=== PATIENT | male | born 1965 | race Caucasian/White ===

== ENCOUNTER 2016-12-20 06:46 | Day surgery (SDC) | payer OTHER ==
--- NOTE | 2016-12-20 06:42 | History and Physical - [facility] ---
CHIEF COMPLAINT/HISTORY OF CHIEF COMPLAINT: This patient presents with a history of intractable lumbar radiculitis. An implanted spinal opioid infusion system has been placed over a number of years. Recently the system ran dry and it has at this point been nonfunctional for greater than 7-10 days. For that reason he is here for replacement of pump with refill and appropriate diagnostics. His infusion system was infusing Hydromorphone at 4.5 mg per day. The catheter tip was identified at L1-L2. PAST MEDICAL HISTORY: Asthmatic bronchitis, hypertension and closed head injury. PAST SURGICAL HISTORY: MEDICATIONS ON ADMISSION: List to be provided. ALLERGIES: ULTRAM. FAMILY/PSYCHOSOCIAL HISTORY: SYSTEMS REVIEW: The patient is appropriate in no acute distress. The remainder of the systems review is positive for sleep disturbance, blood pressure problems, gastrointestinal disease, depression, and anxiety disorder. PHYSICAL EXAMINATION: Height is 6'2", weight is 250. Vital signs not available. HEENT: Within normal limits. LUNGS: Clear. HEART: Regular rate and rhythm. ABDOMEN: Nontender. MUSCULOSKELETAL: Examination of the musculoskeletal system shows the pump in the left posterior gluteal margin. The incisional site is intact. Midline catheter placement site is intact. Sensory sargent are intact. NEUROLOGIC: Cranial nerves are intact. IMPRESSION: 1. INTRACTABLE LUMBAR RADICULITIS, ICD10 CODE M54.16 AND M54.17. 2. SPINAL OPIOID INFUSION SYSTEM PROGRAMMABLE PUMP WITH HYDROMORPHONE, NONFUNCTIONAL. PLAN: The patient is here for replacement of pump and reinitiation of the infusion therapy. He has been managed by oral medications for withdrawal and will be kept overnight for observation and discharged in the morning. All the potential risks, side effects, and complications have been carefully reviewed and discussed. ANIL CALVILLO D.O. Date & Time JOB NUMBER: [id number] MTDD
[~2016-12-20 06:46] MED LIST: ACETAMINOPHEN 1000MG/100 ML PREMIX IV ONE; CEFAZOLIN 2 Gram 50 ML IVPB ONE; FAMOTIDINE 20MG TABLET PO ONE; HYDROMORPHONE HCL IV ONE; HYDROMORPHONE HCL/PF 0.002 MG in 0.9 % SODIUM CHLORIDE 10ML VIA 0.998 ML IVP ONE; MECLIZINE 25 MG TABLET PO ONE; METOCLOPRAMIDE 10 MG TABLET PO ONE; SODIUM CHLORIDE 0.9% IV ONE
[2016-12-20 07:18] LABS: BASO % 0.5 % (0-6); EOS % 3.8 % (0-6); HEMATOCRIT 40.1 % (42.0-52.0); HEMOGLOBIN 13.3 gm/dl (14.0-18.0); LYMPH % 36.7 % (16-45); MEAN CELL VOLUME 86.4 fl (81-97); MEAN CORPUSCULAR HGB CONC 33.2 g/dl (32-36); MEAN PLATELET VOLUME 10.8 fl (7.4-10.4); PLATELET COUNT 200 K/uL (130-400); RED BLOOD COUNT 4.64 M/uL (4.40-5.70); RED CELL DISTRIBUTION WIDTH 14.9 % (11.5-14.5); WHITE BLOOD COUNT W/O DIFF 7.6 K/uL (4.2-12.2)
[2016-12-20 07:19] LABS: MEAN CORPUSCULAR HEMOGLOBIN 28.6 pg (27-33)
[2016-12-20 07:28] LABS: ANION GAP 10.6 (7-16); CARBON DIOXIDE 23.4 mmol/L (22-30); CREATININE 1.4 mg/dL (0.66-1.25); INR 0.98; PARTIAL THROMBOPLASTIN TIME 29.2 SECONDS (24.5-39.1); PROTHROMBIN TIME (PATIENT) 11.1 SECONDS (9.5-12.1)
[2016-12-20] MEDS ORDERED: HYDROMORPHONE HCL 2 MG/ML VIAL IV ONE (14:00)
[2016-12-20] MEDS ORDERED: MIDAZOLAM HCL 2MG/2ML VIAL IV ONE (14:00)
[2016-12-20] MEDS ORDERED: PROPOFOL 10 MG/ML VIAL IV ONE (14:00)
[2016-12-20] MEDS ORDERED: BUPIVACAINE 0.5% W/EPI MPF 30 ML VIAL IVP ONE (17:01)
[2016-12-20] MEDS ORDERED: CEFAZOLIN 1G VIAL IM ONE (17:01)
[2016-12-20] MEDS ORDERED: LIDOCAINE 1% W/EPI 1:200,000 MPF 30ML SQ ONE (17:01)
--- NOTE | 2016-12-22 09:00 | Operative Note ---
DATE OF SURGERY: 12/20/2016. PREOPERATIVE DIAGNOSES: 1. Intractable lumbar radiculitis, ICD-10 Code M54.16 and M54.17. 2. Battery depletion and failure, spinal infusion system, hydromorphone. SURGERY: 1. Incision, subcutaneous dissection, and removal and replacement of a programmable pump 40 mL [employer].2. Resection, spinal catheter. 3. Interface resected catheter to pump, prefilled hydromorphone 0.5 mg/mL. 4. Placement of pump with catheter attachment into pouch, securing to posterior fascia with nonabsorbable suture. 5. Placement of 24 gauge Interiano needle into access port, aspiration and clearing catheter of opioid and CSF mixture, 1 mL. 6. Diagnostic myelography with radiologic supervision and interpretation through access port. 7. Placement of pump into pouch, securing to posterior fascia using nonabsorbable suture, pump eyelets. Closure of incision with Vicryl for fascia, running subcuticular Vicryl for skin, Dermabond closure. 8. Programming of pump to deliver by continuous infusion hydromorphone at 0.05 mg per day. Surgeon: Ok Stein DO. Anesthesia: Local sedation. Anesthesia Provider: Steve Campbell CRNA. Indications: This patient presents with a history of intractable lumbar radiculitis. Approximately 7-10 days ago, the pump fluid depleted and the battery went into a stall. He is here for replacement of pump and reinitiation of infusion therapy. Previous dose hydromorphone 4.5 mg per day. PROCEDURE: Intravenous line, vital sign monitoring, intravenous sedation, prep, drape, sterile technique. Patient positioned prone. Sterile prep at the left posterior gluteal margin using imagery of guidance and local infiltration. The previous incision was infiltrated. Incision made and subcutaneous dissection was conducted to the pump. The pump was then exteriorized. The pump was from the indwelling catheter and replaced onto the field with a new 40 mL programmable, prefilled hydromorphone 0.5 mg/mL. The indwelling catheter within the pouch had a damaged interface. Catheter resection performed, replacing the distal portion of the catheter. The revised catheter was then interfaced with a new pump. A 24 gauge Interiano needle was inserted into the access port and 1 mL of catheter contents was aspirated, clearing the catheter of opioid and CSF. The pump was then placed into the pouch and secured to the posterior fascia using nonabsorbable suture at 2 points, pump eyelets. With the pump secured into the pouch and through the access port, contrast was injected. The resulting myelogram with radiologic supervision and interpretation showed the catheter tip at L1-2 with smooth linear flow of contrast noted. Catheter could be seen, all connections appropriate. There were no kinks or bends, no leaks. The incision was then closed with Vicryl for fascia, running subcuticular Vicryl for the skin, Dermabond closure. Pump was then programmed to deliver by continuous infusion hydromorphone at 0.05 mg per day. He was transported to the recovery room stable, showing no side effects of the procedure or the sedation. He will be monitored until stable and discharged home. DISCHARGE INSTRUCTIONS: 1. The sites will remain clean and dry, with no showering or bathing in any way that would disrupt dressings. If it happens, contact the clinic.2. Standard medications resumed, including Levaquin the antibiotic 500 mg once a day for 14 days. 3. Spinal opioid side effects, including respiratory depression, nausea, vomiting, constipation, urinary retention, lightheadedness, or rash have all been discussed and reviewed. 4. Other instructions were provided, with numbers to contact for problems given. He will be seen in the office in 3-5 days. He should keep his activity low until his incisions are checked. Ok Stein DO CC: Dr. Mary SCHOFIELD
== END 2016-12-20 09:45 | disposition home or self-care (01) ==
LOC: SUR 06:46
PROVIDERS: ATTEND Pain Medicine Interventional Pain Medicine
DX: T85.695A Other mechanical complication of other nervous system device, implant or graft, initial encounter (principal); I10 Essential (primary) hypertension; E78.00 Pure hypercholesterolemia, unspecified; E11.9 Type 2 diabetes mellitus without complications; Z79.84 Long term (current) use of oral hypoglycemic drugs; Z79.01 Long term (current) use of anticoagulants
CPT/HCPCS: 62367; 85025; 85730; 85610; 80048; 85002; 62362; 00300; Q9967; J1170 ×2; J0690

== ENCOUNTER 2017-06-20 14:20 | Day surgery (SDC) | payer OTHER ==
--- NOTE | 2017-06-20 07:09 | History and Physical Report ---
DATE: 06/19/2017. CHIEF COMPLAINT AND HISTORY OF CHIEF COMPLAINT: This patient presents with a history of posttraumatic cervical radiculitis. Due to the failure of therapy, an office-based spinal cord stimulator trial was conducted on May 31, 2017, with 75 to 85 percent pain control. Due to the failure of all therapy and the success of the trial, he presents today for implantation of a permanent system. PAST MEDICAL HISTORY: Asthmatic bronchitis, hypertension, closed head injury. PAST SURGICAL HISTORY: Craniotomy. MEDICATIONS ON ADMISSION: To be provided. ALLERGIES: Ultram. PHYSICAL EXAMINATION: General: Height and weight are not known. Vital Signs: Unavailable. HEENT: Within normal limits. Lungs: Clear. Heart: Regular rate and rhythm. Abdomen: Nontender. Musculoskeletal: Examination of the musculoskeletal system shows diffuse tenderness throughout the cervical spine. There is tenderness throughout the upper extremity muscle groups across the trapezius, suprascapular, and deltoid. Hand grasp and supply planner strength are intact. There is no obvious neurologic deficit. Motor and reflexes are intact. Neurologic: Cranial nerves are intact. IMPRESSION: INTRACTABLE CERVICAL RADICULITIS, ICD-10 CODE M54.13. PLAN: The patient is here for implantation of a permanent cervical spinal cord stimulator based upon a successful trial and the failure of all other therapies. The potential risks, side effects, and complications have all been carefully reviewed and discussed. These include dural puncture, spinal headache , nerve root injury, and spinal cord injury. We will consider the procedure outpatient, but an overnight stay will be evaluated. JOB NUMBER: [id number] cc: Messi Vitale
[~2017-06-20 14:20] MED LIST changes: +ACETAMINOPHEN 1,000 MG/100 ML BTL IV ONE; -ACETAMINOPHEN 1000MG/100 ML PREMIX IV ONE; +CEFAZOLIN 2 Gram 2 GM/50 ML BAG IVPB ONE; -CEFAZOLIN 2 Gram 50 ML IVPB ONE; -HYDROMORPHONE HCL IV ONE; -HYDROMORPHONE HCL/PF 0.002 MG in 0.9 % SODIUM CHLORIDE 10ML VIA 0.998 ML IVP ONE; -SODIUM CHLORIDE 0.9% IV ONE
[2017-06-20] MEDS ORDERED: LIDOCAINE 2% MDV (20MG/ML) 20ML VIAL IV ONE (14:21)
[2017-06-20] MEDS ORDERED: LIDOCAINE 1% W/EPI 1:200,000 MPF 30ML SQ ONE (14:21)
[2017-06-20] MEDS ORDERED: FENTANYL PF 100MCG/2ML VIAL IV ONE (14:21)
[2017-06-20] MEDS ORDERED: MIDAZOLAM HCL 2MG/2ML VIAL IV ONE (14:21)
[2017-06-20] MEDS ORDERED: CEFAZOLIN 1G VIAL IM ONE (14:21)
[2017-06-20] MEDS ORDERED: BUPIVACAINE 0.75% W/EPI MPF 30ML VIAL IVP ONE (14:21)
[2017-06-20] MEDS ORDERED: PROPOFOL 10 MG/ML VIAL IV ONE (14:21)
[2017-06-20] MEDS ORDERED: FLUMAZENIL 1MG/10ML VIAL IV ONE (14:21)
[2017-06-20 14:41] LABS: BLEEDING TIME 5.5 MINUTES (1.5-7.0)
[2017-06-20 14:56] LABS: INR 1.04; PARTIAL THROMBOPLASTIN TIME 30.8 SECONDS (24.5-39.1); PROTHROMBIN TIME (PATIENT) 11.2 SECONDS (9.5-12.1)
[2017-06-20] MEDS ORDERED: METOCLOPRAMIDE 10 MG TABLET PO PRN (16:19)
[2017-06-20] MEDS ORDERED: HYDROMORPHONE HCL 2 MG/ML VIAL IM PRN (16:19)
[2017-06-20] MEDS ORDERED: HYDROMORPHONE HCL 1 MG/ML CPJ IM PRN (16:19)
[2017-06-20] MEDS ORDERED: ACETAMINOPHEN 325 MG TAB PO PRN ×2 (16:19)
[2017-06-20] MEDS ORDERED: TEMAZEPAM 15 MG CAPSULE PO PRN ×2 (16:19)
[2017-06-20] MEDS ORDERED: HYDROCODONE/APAP 7.5/325MG TABLET PO PRN ×2 (16:19)
[2017-06-20] MEDS ORDERED: DIPHENHYDRAMINE HCL 25 MG CAPSULE PO PRN ×2 (16:19)
[2017-06-20] MEDS ORDERED: OXYCODONE/APAP 10MG-325MG TABLET PO PRN (16:19)
[2017-06-20] MEDS ORDERED: METOCLOPRAMIDE HCL 10 MG/2 ML VIAL IVP PRN (16:19)
[2017-06-20] MEDS ORDERED: AL HYDROX/MAG HYDROX 30ML UD PO PRN (16:19)
[2017-06-20] MEDS ORDERED: DIPHENHYDRAMINE HCL IV 50 MG/ML VIAL IVP PRN ×2 (16:19)
[2017-06-20] MEDS ORDERED: SENNOSIDES/DOCUSATE SODIUM UD CAPSULE PO PRN ×2 (16:19)
[2017-06-20] MEDS: 0.9 % SODIUM CHLORIDE 10ML SYR IVP SCH (22:16)
[2017-06-20] MEDS: OXYCODONE/APAP 10MG-325MG TABLET PO PRN (22:17)
[2017-06-21] MEDS ORDERED: CEFAZOLIN 2 Gram 2 GM/50 ML BAG IVPB SCH (02:00)
[2017-06-21] MEDS ORDERED: PANTOPRAZOLE SODIUM 40 MG TABLET PO SCH (07:00)
[2017-06-21] MEDS: 0.9 % SODIUM CHLORIDE 10ML SYR IVP SCH (08:28)
[2017-06-21] MEDS: OXYCODONE/APAP 10MG-325MG TABLET PO PRN (08:33)
--- NOTE | 2017-06-21 08:55 | RADIOLOGY REPORT ---
EXAM: AP CERVICOTHORACIC SPINE, SINGLE VIEW HISTORY: POST PAIN STIMULATOR IMPLANT. TECHNIQUE: A single AP view of the cervical and upper thoracic spine were obtained. Comparison: None. FINDINGS: There are two wires presumably associated with pain stimulator implant device with the wires extending up the cervical spine to the C2 level. There is probably postop change involving the mandible bilaterally. IMPRESSION: PAIN STIMULATORY WIRES EXTENDING UP TO THE C2 LEVEL BILATERALLY. JOB NUMBER: [id number] MTDD
[2017-06-21] MEDS ORDERED: GLIPIZIDE XL 5 MG TABLET PO SCH (10:00)
[2017-06-21] MEDS ORDERED: TOPIRAMATE 100MG TABLET PO SCH (10:00)
[2017-06-21] MEDS ORDERED: DULOXETINE HCL 30 MG CAPSULE.DR PO SCH (10:00)
--- NOTE | 2017-06-21 15:27 | Operative Note - [facility] ---
DATE OF SURGERY: 06/20/17 PREOPERATIVE DIAGNOSIS: CERVICAL RADICULITIS, ICD-10 CODE = M54.13. OPERATION: 1. FLUOROSCOPICALLY-GUIDED EPIDURAL ACCESS RIGHT T2-3, PLACEMENT OF SPINAL CORD STIMULATOR LEAD 1, A [employer] INFINION 16 WITH 16 ELECTRODES POSITIONED LEFT C2. 2. FLUOROSCOPICALLY-GUIDED EPIDURAL ACCESS RIGHT T3-4, PLACEMENT OF SPINAL CORD STIMULATOR LEAD 2, A [employer] INFINION 16 WITH 16 ELECTRODES POSITIONED RIGHT, C2. 3. COMPLEX PROGRAMMING LEAD 1 OVER 20 MINUTES. COMPLEX PROGRAMMING OF LEAD 2 OVER 20 MINUTES. 4. INCISION, SUBCUTANEOUS DISSECTION, AND ANCHORING OF LEAD 1 AND LEAD 2 TO SUPRASPINOUS FASCIA USING A [employer] LOCKING ANCHOR AND NONABSORBABLE SUTURE. 5. INCISION, SUBCUTANEOUS DISSECTION RIGHT FLANK PICKED BY PATIENT ABOVE BELT LINE FOR GENERATOR IDENTIFIED A [employer] PROGRAMMABLE RECHARGEABLE. 6. TUNNELING BETWEEN POUCHES, PLACEMENT OF EXTERNAL PORTION OF LEAD 1 AND LEAD 2 INTO GENERATOR POUCH, EACH LEAD INTERFACED WITH THE GENERATOR. 7. CLOSURE OF INCISIONS, VICRYL FOR FASCIA AND A RUNNING SUBCUTICULAR VICRYL FOR SKIN. DERMABOND CLOSURE. 8. COMPLEX RECOVERY ROOM PROGRAMMING INTERNAL GENERATOR HOME USE TWO STIMULATORS 20 MINUTES. SURGEON: ANIL CALVILLO D.O. ANESTHESIA: LOCAL SEDATION. ANESTHESIA PROVIDER: LINETTE PAT CRNA. INDICATION: This patient presents with a history of an intractable cervical radiculitis. Due to the failure of all therapy, a trial spinal cord stimulation was conducted with 75-plus percent pain control. Due to the failure of therapies and the success of the trial, he is here for implantation of a permanent system. PROCEDURE: Intravenous line, vital sign monitoring, IV sedation, prepped and draped in sterile technique, patient position prone. On the right, the epidural interspace T2-3 and 3-4 infiltrated and using two separate standard epidural needles with [id number], the space was accessed. At 2-3, spinal cord stimulator lead 1, a [employer] Infinion 16 with 16 electrodes positioned left of midline C2. With the epidural access right of the midline at T3-4, similar technique, spinal cord stimulator lead 2, also a [employer] Infinion 16 with 16 electrodes positioned right at C2. Complex programming of lead 1 over 20 minutes followed by complex programming of lead 2 over 20 minutes ultimately resulting in patterns of stimulation across the neck and into the shoulders; patient indicating we are in all of the areas. The skin below both needles was infiltrated and then an incision made to the supraspinous fascia. Each of the needles was removed and the leads anchored to the fascia with an anchoring device and nonabsorbable suture. The patient picked the area above his belt line on the right for the generator. Skin infiltrated, incision made, and subcutaneous dissection was conducted to form a pouch of suitable size and depth for the generator, a [employer] Programmable Rechargeable. A tunneling tool was then used to carry the leads into the generator pouch and each lead was interfaced to the generator. Antibiotic irrigation and Bovie for hemostasis. The generator was placed into the pouch and secured to the fascia with nonabsorbable suture. The leads were placed into their own pouch then both incisions closed Vicryl for fascia and running subcuticular Vicryl for skin. Dermabond closure to approximate the edges of the wound. When stable, he was transported to the Recovery Room showing no side-effects from the procedure or the sedation. He will be kept overnight for observation and discharged in the morning. DISCHARGE INSTRUCTIONS: 1. The sites will remain clean and dry. No showering or bathing in any way that would disrupt dressings. If it happens, contact the clinic. 2. Standard medications resumed including Levaquin, the antibiotic, 500 mg once a day for 14 days. 3. The office will contact the patient at home and set up an evaluation in 5-7 days to evaluate the sites. Throughout this period of time, his activities should stay low. All other instructions provided, numbers to contact, problems given, at that point, he will be discharged. cc: Dr. Ott JOB NUMBER: [id number] [facility]
== END 2017-06-21 10:45 | disposition home or self-care (01) ==
LOC: SUR 14:20 → MEDSURG 18:56 → SUR 06-21 10:45
PROVIDERS: ATTEND Pain Medicine Interventional Pain Medicine
DX: M54.13 Radiculopathy, cervicothoracic region (principal); I10 Essential (primary) hypertension; I48.91 Unspecified atrial fibrillation; Z79.01 Long term (current) use of anticoagulants; E78.00 Pure hypercholesterolemia, unspecified; E11.9 Type 2 diabetes mellitus without complications; Z79.84 Long term (current) use of oral hypoglycemic drugs; Z87.820 Personal history of traumatic brain injury
CPT/HCPCS: 63685; 63650 ×2; 01936; 95972; 85730; 85610; 36416; 82948; 85002; 72020; J3010; J0690 ×2; J3490 ×2; C1820; C1883

== ENCOUNTER 2017-09-12 06:49 | Day surgery (SDC) | payer OTHER ==
[2017-09-12] MEDS ORDERED: FENTANYL PF 100MCG/2ML VIAL IV ONE (06:50)
[2017-09-12] MEDS ORDERED: MIDAZOLAM HCL 2MG/2ML VIAL IV ONE (06:50)
[2017-09-12] MEDS ORDERED: *PACU ONLY* KETAMINE HCL 10 MG/ML (20ML) VIAL IV ONE (06:50)
[2017-09-12] MEDS ORDERED: DEXAMETHASONE PRESERVATIVE FREE 10MG/ML VIAL IV ONE (06:50)
[2017-09-12] MEDS ORDERED: BUPIVACAINE 0.75% W/EPI MPF 30ML VIAL IVP ONE (06:50)
[2017-09-12] MEDS ORDERED: LIDOCAINE 2% MDV (20MG/ML) 20ML VIAL IV ONE (06:50)
[2017-09-12] MEDS ORDERED: LIDOCAINE 1% W/EPI 1:200,000 MPF 30ML SQ ONE (06:50)
[2017-09-12] MEDS ORDERED: PROPOFOL 10 MG/ML VIAL IV ONE (06:50)
--- NOTE | 2017-09-13 15:04 | Operative Note ---
DATE OF SURGERY: 09/12/17 PREOPERATIVE DIAGNOSIS: CERVICAL SPONDYLOSIS WITHOUT MYELOPATHY, ICD-10 CODE = M47.812. OPERATION: RADIOFREQUENCY RHIZOTOMY BILATERAL CERVICAL FACETS 3-4, 4-5, AND 5-6. SURGEON: ANIL CALVILLO D.O. ANESTHESIA: LOCAL SEDATION. ANESTHESIA PROVIDER: LINETTE PAT CRNA. INDICATION: This patient presents with primary neck pain. Examination shows tenderness in the cervical spine. Range of motion does cause pain to the neck with extension. Diagnostic studies show extensive multiple levels of spondylosis. A facet series 75-plus percent pain control. Due to the failure of therapy and the success of the facet series, the patient presents for rhizotomy for more long-term relief. PROCEDURE: Intravenous line, vital sign monitoring, IV sedation, prepped, draped, sterile technique. Cervical facet levels 3-4, 4-5, and 5-6 bilateral. Each one of these points on the skin infiltrated. A #20-gauge rhizotomy cannula positioned. Stimulation trials conducted. Rhizotomy burn performed. Local with anti-inflammatory into the sites. Topical antibiotics. Sterile dressing applied. We will monitor and evaluate. cc: Dr. Faustin JOB NUMBER: [id number] MTDD
== END 2017-09-12 09:11 | disposition home or self-care (01) ==
LOC: SUR 06:49
PROVIDERS: ATTEND Pain Medicine Interventional Pain Medicine
DX: M47.812 Spondylosis without myelopathy or radiculopathy, cervical region (principal); I10 Essential (primary) hypertension; E78.00 Pure hypercholesterolemia, unspecified
CPT/HCPCS: 64633; 64634 ×2; 01936; J1100; J3010